=== PATIENT | male | born 1945 ===

== ENCOUNTER 2016-05-15 08:16 | Inpatient (IN) | payer OTHER ==
[2016-04-25 15:15] VITALS: BMI 34.0
--- NOTE | 2016-04-25 15:48 | PAT Medication Instructions ---
Service Date Apr 25, 2016. Current Home Medication List Amlodipine (Norvasc), 10 MG PO QAM Hydrochlorothiazide (Hctz), 25 MG PO QAM Metoprolol Tartrate (Lopressor) (Lopressor), 50 MG PO BID Multivitamin (Multivitamin), 1 TAB PO QAM Naproxen (Aleve), 220 MG PO PRN [Klorcon], 20 MEQ PO QAM [Klorcon], 10 MEQ PO QPM [Vicodin], 1 TAB PO Q4H PRN for mortuary technician Instructions For Your Scheduled Surgery - Check with surgeon for instructions: Naproxen (Aleve), 220 MG PO PRN - Hold the following medications the morning of surgery: Hydrochlorothiazide (Hctz), 25 MG PO QAM [Klorcon], 20 MEQ PO QAM Multivitamin (Multivitamin), 1 TAB PO QAM - Take the following medications the morning of surgery with a sip of water: Amlodipine (Norvasc), 10 MG PO QAM Metoprolol Tartrate (Lopressor) (Lopressor), 50 MG PO BID [Vicodin], 1 TAB PO Q4H PRN for RN (okay to take up to 4 hours prior to surgery if needed) - Take the following medications as scheduled the night before surgery: Metoprolol Tartrate (Lopressor) (Lopressor), 50 MG PO BID [Vicodin], 1 TAB PO Q4H PRN for RN [Klorcon], 10 MEQ PO QPM If you have any questions please call us at [phone] (Daysi Gomez PA-C) or [phone] or [phone]
--- NOTE | 2016-04-25 16:13 | DIAGNOSTIC IMAGING REPORT ---
CHEST 2 VIEWS ROUTINE CLINICAL HISTORY: Preoperative chest COMPARISON STUDY: No previous studies for comparison. FINDINGS: The cardiac and mediastinal contours are normal. There is no evidence of focal pulmonary consolidation. There is no evidence of failure. No pleural effusions are visualized.[ There is minor linear basilar atelectasis/scarring. IMPRESSION: No active disease in the chest. Electronically signed by: Brenden Carrasco M.D. 04/25/2016 4:11 PM
[2016-04-25 16:17] LABS: BASO % 0.3 %; BASO ABS # 0.03 K/uL (0-0.2); COMPLETE YES; EOS % 1.3 %; HEMATOCRIT 43.1 % (42-52); IG% 0.1 %; LYMPH % 22.8 %; LYMPH ABS # 2.08 K/uL (1.2-3.4); MEAN CELL VOLUME 90.7 fL (80-100); MEAN CORPUSCULAR HEMOGLOBIN 31.2 pg (25-34); MEAN CORPUSCULAR HGB CONC 34.3 g/dl (32-36); MEAN PLATELET VOLUME 9.1 fL (7.4-10.4); MONO % 11.7 %; NEUT % 63.8 %; PLATELET COUNT 360 K/uL (130-400); RED BLOOD COUNT 4.75 M/uL (4.7-6.1); WHITE BLOOD COUNT 9.12 K/uL (4.8-10.8)
[2016-04-25 16:19] LABS: URINE APPEARANCE CLEAR (CLEAR); URINE BILIRUBIN NEG (NEG); URINE COLOR DK YELLOW; URINE NITRITE NEG (NEG); URINE SPECIFIC GRAVITY 1.022 (1.000-1.030); UROBILINOGEN NEG (NEG)
[2016-04-25 16:23] LABS: MANUAL MICROSCOPIC REQUIRED? NO; REVIEW REQ? NO
[2016-04-25 16:26] LABS: PARTIAL THROMBOPLASTIN RATIO 1.3; PROTHROMBIN TIME (PATIENT) 10.9 SECONDS (9.0-12.0)
[2016-04-25 16:43] LABS: BUN/CREATININE RATIO 19.6 (10-20); CALCIUM 9.9 mg/dl (8.5-10.1); CREATININE 0.91 mg/dl (0.60-1.40); POTASSIUM 4.4 mmol/L (3.5-5.1)
--- NOTE | 2016-05-03 18:32 | HISTORY & PHYSICAL EXAMINATION ---
DATE OF ADMISSION: 05/15/2016 CHIEF COMPLAINT: Left hip pain. HISTORY OF PRESENT ILLNESS: This 70-year-old white male presents to the office with his with complaints of left hip pain. He has had left hip pain for several years. It has become worse over the last 3 months. Pain is affecting his ADLs. It is worse with ambulation. No numbness or tingling. He is ambulatory with a cane. Preoperative x-rays have been obtained. He elects to proceed with left total hip arthroplasty in hopes of alleviating his discomfort. PAST MEDICAL HISTORY: Hypertension, kidney stones, and osteoarthritis. PREVIOUS SURGERIES: Bilateral knee replacements. ALLERGIES: KNOWN ALLERGY TO NAPROSYN WHICH CAUSES A RASH. CURRENT MEDICATIONS: HCTZ 25 mg daily, potassium 30 mEq daily, Lopressor 50 mg p.o. b.i.d., multivitamin daily, Norvasc 10 mg daily. SOCIAL HISTORY: The patient is . Retired. Works on a farm. No tobacco use, no ETOH use. FAMILY HISTORY: Noncontributory. REVIEW OF SYSTEMS: Significant for above stated conditions, otherwise unremarkable. PHYSICAL EXAMINATION: GENERAL: Well-developed, well-nourished elderly white male in no acute distress. Sitting in a chair. Alert and oriented. SKIN: Warm and dry with good turgor. No rashes or lesions. No ecchymosis or edema. HEENT: Normocephalic, atraumatic. Eyes PERRLA, EOMI. Nares patent bilaterally without turbinate enlargement. Oropharynx without erythema or exudate. No lesions noted. Uvula midline. Oral mucosa moist. Fair dentition; fillings are noted. HEART: RRR. No MGR. LUNGS: Clear to auscultation bilaterally. No crackles, rhonchi or wheezing. Good air movement. ABDOMEN: Mildly obese. Bowel sounds present x4, soft, nontender. No organomegaly. No masses. MUSCULOSKELETAL: Left hip has no obvious asymmetry or deformity. He has discomfort with palpation over the anterior flexion crease. External rotation of around 30 degrees, internal rotation just beyond neutral. Hip flexion to around 100 degrees. Ambulatory with an antalgic gait using his cane. No pain with palpation over the greater trochanter or buttock. NEUROLOGIC: Gross sensation is intact across both lower extremities by soft touch. Cranial nerves II-XII are intact. DATA: Radiographic images previously obtained were reviewed. The patient has end-stage DJD of the left hip with a large Cam lesion. Joint space narrowing, periarticular osteophytes, and subchondral sclerosis were also present. There is a subchondral cyst on the femur. IMPRESSION: Left hip end-stage degenerative joint disease. PLAN: Informed written consent was obtained for left total hip arthroplasty. Postoperative prescriptions for Percocet and Coumadin will be provided at discharge from the hospital. He will think about outpatient PT versus home health. He did request pain medication until the time of surgery. He will obtain medical clearance from his PCP, Dr. Al. Preoperative lab work, EKG, and chest x-ray have been ordered.
[2016-05-15] VITALS (9 sets, daily range): BP systolic 103–134; BP diastolic 60–78; PULSE 61–91; TEMP 36.5–37.1; O2SAT 93–95; Ht 175.3 cm; Wt 105.9 kg
[~2016-05-15] VITALS: Ht 175.3 cm; Wt 105.9 kg
[~2016-05-15 08:16] MED LIST: AMLO-114 PO; BUPIVACAINE 0.5 % 5 MG/1 ML PF 10ML VIAL ONE; CEFAZOLIN 2000 MG/60 ML D5W 60 ML IV SCH; HYDR25TA4 PO; KLORCON PO; LACTATED RINGER'S 1000ML IV SCH; LACTATED RINGER'S 500 ML IV SCH; METO50TA16 PO; MULT-506 PO; NAPR1TAB9 PO; ORTHO JOINT ANESTHETIC ONE; ROPIVACAINE 5MG/ML 30 ML 150 MG, BUPIVACAINE/EPINEPHR 0.5% MPF 30 ML, DEXAMETHASONE INJ... INFIL SCH; TRANEXAMIC ACID INJ 1,000 MG in SODIUM CHLORIDE 0.9% 100ML 100 ML IV SCH; VICODIN PO
--- NOTE | 2016-05-15 08:27 | History & Physical Bridge Note ---
H&P Re-Evaluation Bridge Note: I have examined the patient, reviewed the History & Physical and in the interval since the performance of the History & Physical I have noted the following changes of clinical significance: No changes noted
[2016-05-15] MEDS ORDERED: klor con PO (08:46)
[2016-05-15] MEDS ORDERED: ROCURONIUM BROMIDE 10 MG/ML 5 ML VIAL ONE (10:14)
[2016-05-15] MEDS ORDERED: PROPOFOL IV EMULSION 10 MG/ML 20 ML VIAL IV ONE (10:14)
[2016-05-15] MEDS ORDERED: LIDOCAINE HCL 2% 2 ML VIAL (20MG/ML) ONE (10:14)
[2016-05-15] MEDS ORDERED: MIDAZOLAM HCL 1 MG/ML 2ML VIAL ONE (10:15)
[2016-05-15] MEDS ORDERED: FENTANYL CITRATE INJ 50 MCG/1 ML 2 ML VIAL ONE ×2 (10:15→11:35)
--- NOTE | 2016-05-15 10:17 | Anesthesiology Progress Note ---
Anesthesia Post Op Note Date & Time May 15, 2016 at 12:30 The patient had some coughing, non-productive, in the PACU. He was given a duoneb treatment and discharged on 02 3L NC. Vital Signs Pain Intensity: 0 Vital Signs Past 12 Hours Date Time Temp Pulse Resp B/P Pulse Ox O2 Delivery O2 Flow Rate FiO2 05/15/16 08:49 37.1 74 18 132/77 93 Room Air Notes Mental Status: alert / awake / arousable, participated in evaluation Pt Amnestic to Procedure: Yes Nausea / Vomiting: adequately controlled Pain: adequately controlled Airway Patency, RR, SpO2: stable & adequate BP & HR: stable & adequate Hydration State: stable & adequate Anesthetic Complications: no major complications apparent
[2016-05-15] MEDS ORDERED: ONDANSETRON INJ 2 MG/ML 2 ML VIAL IV PRN ×2 (10:30→12:45)
[2016-05-15] MEDS ORDERED: PHENYLEPHRINE 100MCG/ML 5ML SYR IV PRN (10:30)
[2016-05-15] MEDS ORDERED: ATROPINE SULFATE 0.1 MG/ML 5ML SYR IV PRN (10:30)
[2016-05-15] MEDS ORDERED: EpHEDrine SULFATE INJ 50 MG/ML AMP IV PRN (10:30)
[2016-05-15] MEDS ORDERED: SCOPOLAMINE 1.5 MG TDSY TD ONE (11:09)
[2016-05-15] MEDS ORDERED: DEXAMETHASONE SOD INJ 4 MG/ML VIAL ONE (11:52)
[2016-05-15] MEDS ORDERED: ONDANSETRON INJ 2 MG/ML 2 ML VIAL ONE (11:52)
[2016-05-15] MEDS ORDERED: HYDROmorphone INJ 2 MG/ML SYR/VIAL ONE (11:53)
[2016-05-15] MEDS ORDERED: POVIDONE-IODINE OP SOLN 30 ML BTL TOP ONE (12:35)
--- NOTE | 2016-05-15 12:41 | [facility] Post Operative Brief Note ---
Immediate Operative Summary Operative Date May 15, 2016. Pre-Operative Diagnosis Left Hip End-Stage Degenerative Joint Disease Post-Operative Diagnosis Left Hip End-Stage Degenerative Joint Disease Procedure(s) Performed Left Total Hip Arthroplasty--Uncemented Surgeon Dr. Gregg Die Drawing Checker Surgeon(s) Dr. Maninder Mendes/COREY Mars Estimated Blood Loss 200 ml Findings severe deformity and contracture Fluids (cc crystalloids) 1800cc Specimens A. Left Femoral Head Drains none Anesthesia GET Complication(s) None Disposition Recovery Room / PACU
[2016-05-15] MEDS ORDERED: BISACODYL 10 MG SUPP PR PRN (12:45)
[2016-05-15] MEDS ORDERED: MAGNESIUM HYDROXIDE SUSP 30 ML UDC PO PRN (12:45)
[2016-05-15] MEDS ORDERED: TAMSULOSIN HCL 0.4 MG CAP PO PRN (12:45)
[2016-05-15] MEDS ORDERED: METOCLOPRAMIDE HCL INJ 5 MG/ML 2 ML VIAL IV PRN (12:45)
[2016-05-15] MEDS ORDERED: KETOROLAC TROMETHAMINE 15 MG/ML VIAL IV PRN (12:45)
[2016-05-15] MEDS ORDERED: DiphenhydrAMINE HCL 50 MG/ML VIAL IV PRN (12:45)
[2016-05-15] MEDS ORDERED: ALUMINUM/MAGNESIUM/SIMETH (MAALOX MAX) 30 ML UDC PO PRN (12:45)
--- NOTE | 2016-05-15 12:58 | [facility] Post Operative Brief Note ---
Immediate Operative Summary Operative Date May 15, 2016. Pre-Operative Diagnosis Left Hip End-Stage Degenerative Joint Disease Post-Operative Diagnosis Left Hip End-Stage Degenerative Joint Disease Procedure(s) Performed Left Total Hip Arthroplasty--Uncemented Surgeon Dr. Gregg Coke Worker Surgeon(s) Dr. Maninder Mendes/COREY Mars Estimated Blood Loss 200 ml Findings severe left hip DJD Fluids (cc crystalloids) 1800cc Specimens A. Left Femoral Head Complication(s) None Disposition Recovery Room / PACU
--- NOTE | 2016-05-15 13:01 | OPERATIVE REPORT ---
DATE OF OPERATION: 05/15/2016 PREOPERATIVE DIAGNOSIS: Severe osteoarthritis left hip. POSTOPERATIVE DIAGNOSIS: Same. PROCEDURE: Noncemented left total hip replacement. SURGEON: Dr. Gregg. ROUNDHOUSE FIRER/FIREMAN: Dr. Toussaint. SECOND ROUNDHOUSE FIRER/FIREMAN: Mateus Chavez PA-C. PERIOPERATIVE SITUATION: Medically cleared male with intractable hip pain has failed conservative management and wishes to proceed with surgical treatment. Options were discussed with him as well as all of the risks and complications. Please see consent. OPERATION AND FINDINGS: OPERATION: The patient appropriately identified, site verified, consent verified, 2 grams of Ancef confirmed as being given. The left lower extremity was prepped and draped in the usual routine fashion with the patient in the right lateral decubitus position. A posterior approach to the hip was made. Sharp dissection carried through the skin and blunt dissection down to the fascia. This was then incised with care taken to protect the sciatic nerve. The Charnley retractor was placed. The short external rotators were released and the capsule excised due to all the contractures. The osteophytes were resected along the margin of the acetabulum and the hip dislocated. There was severe deformity of the femoral head and the acetabulum. The femoral head was resected. Anterior capsule was released. Acetabular exposure was then obtained and the remaining labrum was excised and serial reaming carried up to a 54 and 54 cup impacted into appropriate anteversion and inclination. A 6.5 x 25 screw with then placed with excellent purchase. A trial liner was then seated. The femur was then flexed, internally rotated and delivered in the wound, retractors placed. Using a wood box maker, lateralizing rasp, canal finder and serial broaching a size 5 high offset trial was then placed and the reduction carried out with a +5 head and leg lengths were within millimeters of equality and there was superior stability. The hip was then dislocated and all remaining trial implants were removed. The wound was irrigated with Betadine multiple times, Pulsavac, hole eliminator seated, permanent liner seated, permanent stem and head seated, the hip then reduced. It was very stable and leg lengths good. The wound was then irrigated one final time with Betadine and Pulsavac and then the fascia closed with #2 Vicryl then the Orthomix injected and then the wound closed with #2 Vicryl, 2-0 Vicryl and stainless steel clips. Appropriate soft tissue dressing applied and the patient transferred to the recovery room in satisfactory condition having tolerated the procedure well. Estimated blood loss 200 mL. Crystalloid 1800 mL. DVT prophylaxis will be with Coumadin. SUMMARY OF IMPLANTS: Size 54 shell acetabular cup with Gription hole eliminator, 6.5 x 25 screw, 36 x 54 neutral liner, 5 high offset femur stem and 36+5 head. I attest to the content of the Intraoperative Record and any orders documented therein. Any exceptio ns are noted below.
[2016-05-15] MEDS: HYDROmorphone INJ 2 MG/ML SYR/VIAL IV PRN ×6 (13:13→13:38)
--- NOTE | 2016-05-15 13:31 | DIAGNOSTIC IMAGING REPORT ---
AP PELVIS AND LEFT HIP CLINICAL HISTORY: Left hip arthritis COMPARISON STUDY: Outside study dated April 08, 2016 FINDINGS: There are postsurgical changes of a total left hip arthroplasty. The acetabular and femoral components appear well seated. There are no acute fractures. There is no dislocation. There is air within the soft tissues consistent with recent surgery. Overlying skin rogelio are evident. IMPRESSION: Postsurgical changes of a total left hip arthroplasty Electronically signed by: Brenden Carrasco M.D. 05/15/2016 1:30 PM Dictated Date/Time: 05/15/2016 1:29 PM
--- NOTE | 2016-05-15 13:39 | PROGRESS NOTE ---
DATE: 05/15/2016 DATE: 05/15/2016. SUBJECTIVE: Postop check. He is doing well in recovery room, has no major issues. His vital signs are stable. He is afebrile. He denies chest pain, shortness of breath, fever or chills. Neurovascular check reveals intact sciatic nerve and femoral nerve. Postop x-rays look excellent. ASSESSMENT: Doing well. Continue care pathway. Transfer to the floor when vitals are appropriate.
[2016-05-15] MEDS ORDERED: MoRPHine SULFATE 4 MG/ML 1 ML CARP\\VIAL IV PRN (13:45)
[2016-05-15] MEDS ORDERED: KLOR CON PO SCH (14:00)
[2016-05-15] MEDS: MoRPHine SULFATE 2 MG/ML CARP IV PRN ×2 (15:45→22:31)
[2016-05-15] MEDS ORDERED: WARFARIN SOD 5 MG TAB PO ONE (17:00)
[2016-05-15] MEDS: D5W AND 1/2NSS + 20MEQ KCL 1,000 ML IV SCH (17:14)
[2016-05-15] MEDS: FERROUS GLUCONATE 324 MG TAB PO SCH (18:06)
[2016-05-15] MEDS ORDERED: TRANEXAMIC ACID INJ 1,000 MG in SODIUM CHLORIDE 0.9% 100ML 100 ML IV SCH (18:30)
[2016-05-15] MEDS: ACETAMINOPHEN IV 1,000 MG in EMPTY BAG 0 ML IV SCH (18:52)
[2016-05-15] MEDS: CEFAZOLIN IV 2,000 MG in DEXTROSE 5% 50ML 50 ML IV SCH (20:53)
[2016-05-15] MEDS: DOCUSATE SODIUM 100 MG CAP PO SCH (20:53)
[2016-05-15] MEDS: METOPROLOL TARTRATE 50 MG TAB PO SCH (20:53)
[2016-05-15] MEDS ORDERED: SENNA 8.6 MG TAB PO SCH (21:00)
--- NOTE | 2016-05-15 22:17 | INTERNAL MEDICINE CONSULTATION ---
DATE OF CONSULTATION: 05/15/2016 ATTENDING PHYSICIAN: Janak Gregg MD CONSULTING PHYSICIAN: Dr. Bradley Montero REASON FOR CONSULTATION: Perioperative medical management. HISTORY OF PRESENT ILLNESS: Mr. Abel is a 70-year-old gentleman with a history of hypertension, osteoarthritis and chronic back pain. He has had previous bilateral knee replacements and is currently admitted after undergoing a left total hip arthroplasty. He reports no real complaints postoperatively. Denies any fever, chills, malaise. Denies any chest pain, palpitation, shortness of breath, cough. He denies any abdominal pain, nausea, vomiting or diarrhea. He denies any dysuria, hematuria or urinary frequency. He denies any other swollen or painful joints. He does complain of some back pain which he says is chronic as well as some expected left hip pain which he says is well-controlled with his current pain medication regimen. He denies any numbness, tingling or focal weakness and he denies any lower extremity edema. He did have some preoperative workup which included a CBC on 04/25/2016 that showed a white blood cell count of 9100 with a completely normal differential. Hemoglobin was 14.8, hematocrit 43.1% and platelets 360,000. Chemistries at that time showed a sodium of 139, potassium 4.4, chloride 98, bicarbonate was 33, BUN 18 and creatinine 0.9. Glucose was 100, calcium was 9.9. PT was 10.9 for an INR of 1.0. PTT was 32.9. A urinalysis at that time showed clear, dark yellow urine that was trace positive for ketones and had a specific gravity of 1.022, but was otherwise completely unremarkable. A preoperative chest x-ray was read by radiology as showing no acute cardiopulmonary process. A note was made of some minor linear basal atelectasis or scarring. At this point, the patient is resting comfortably on the orthopedic floor and has no complaints at this time. ALLERGIES: NAPROXEN TO WHICH HE REPORTS A RASH. HOME MEDICATIONS: Include: 1. Amlodipine 10 mg p.o. daily. 2. Hydrochlorothiazide 25 mg p.o. daily. 3. Lopressor 50 mg p.o. twice daily. 4. Potassium chloride. 5. Multivitamins. 6. Vicodin p.r.n. for pain. PAST MEDICAL HISTORY: Includes: 1. Hypertension. 2. Osteoarthritis. 3. Previous kidney stones. 4. Status post right and left knee replacements. 5. 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 6. The patient also reports having an echocardiogram remotely after which he was told he had LVH. FAMILY HISTORY: Positive for esophageal cancer in his father, breast cancer and coronary artery disease in his mother. He also has a brother with coronary artery disease. SOCIAL HISTORY: The patient lives at home with his . He is generally independent. He is a lifelong nonsmoker. He does not abuse alcohol or illicit drugs. 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 REVIEW OF SYSTEMS: A 10-system review was conducted and was found to be completely negative except as otherwise indicated above in the history of present illness. PHYSICAL EXAMINATION: VITAL SIGNS: Currently shows temperature is 36.5, pulse 80, respiratory rate is 19, blood pressure is 114/69 and oxygen saturation is 93% on 2 liters via nasal cannula. GENERAL: The patient is awake, alert and oriented. He is in no acute distress. HEENT: The sclerae are nonicteric. The mucous membranes are moist. NECK: The trachea is midline. There is no JVD. RESPIRATORY: The lungs are grossly clear, though very mildly diminished in the bases. He is not in any respiratory distress. CARDIOVASCULAR: S1 and S2 are heard with regular rate and rhythm. There is no murmur, rub or gallop. ABDOMEN: Soft, nontender and nondistended. Bowel sounds are present. EXTREMITIES: Warm, well-perfused and without edema. SKIN: Warm and dry. There is no cyanosis or rash. MUSCULOSKELETAL: There is no chest wall tenderness. The left hip was not examined. It is surgically dressed. There is no other evidence of acute arthritis in any of the joints of either hand or the bilateral feet. No other evidence of joint effusion. NEUROLOGIC: The patient is awake and alert. There are no obvious focal deficits. Gait was not assessed. PSYCHIATRIC: The patient is calm and cooperative. He exhibits a normal mood and affect. DIAGNOSTIC INVESTIGATIONS: Labs and imaging from his preoperative workup were reviewed as outlined above in the history of present illness. ASSESSMENT AND PLAN: 1. Status post left hip total arthroplasty. Care per orthopedics. Currently, his pain is well-controlled. We will continue to monitor his hemoglobin and hematocrit as well as his renal function postoperatively. 2. Hypertension. He is optimally controlled on his current regimen of amlodipine, hydrochlorothiazide and metoprolol. Would continue. 3. Deep venous thrombosis prophylaxis. He is receiving warfarin per orthopedics. We will follow PT/INR. 4. Gastrointestinal prophylaxis with Protonix. Thank you for allowing us to participate in the care of your patient. We will continue to follow him along with you. Total time spent preparing this consultation was 35 minutes.
[2016-05-16] MEDS: ACETAMINOPHEN IV 1,000 MG in EMPTY BAG 0 ML IV SCH (00:10)
[2016-05-16 02:40] VITALS: BP 115/66; PULSE 58; TEMP 36.6; O2SAT 94
[2016-05-16] MEDS: D5W AND 1/2NSS + 20MEQ KCL 1,000 ML IV SCH (04:09)
[2016-05-16] MEDS: CEFAZOLIN IV 2,000 MG in DEXTROSE 5% 50ML 50 ML IV SCH (04:09)
[2016-05-16 06:18] LABS: BASO % 0.1 %; BASO ABS # 0.01 K/uL (0-0.2); COMPLETE YES; HEMATOCRIT 36.5 % (42-52); IG% 0.3 %; LYMPH % 7.6 %; LYMPH ABS # 1.14 K/uL (1.2-3.4); MEAN CELL VOLUME 90.1 fL (80-100); MEAN CORPUSCULAR HEMOGLOBIN 30.9 pg (25-34); MEAN CORPUSCULAR HGB CONC 34.2 g/dl (32-36); MEAN PLATELET VOLUME 8.7 fL (7.4-10.4); PLATELET COUNT 313 K/uL (130-400); RED BLOOD COUNT 4.05 M/uL (4.7-6.1); WHITE BLOOD COUNT 15.02 K/uL (4.8-10.8)
[2016-05-16 06:40] LABS: INR 1.1 (0.9-1.1); PROTHROMBIN TIME (PATIENT) 11.7 SECONDS (9.0-12.0)
[2016-05-16 06:51] LABS: BUN/CREATININE RATIO 17.7 (10-20); CALCIUM 9.3 mg/dl (8.5-10.1); CREATININE 0.95 mg/dl (0.60-1.40); POTASSIUM 4.2 mmol/L (3.5-5.1)
--- NOTE | 2016-05-16 06:52 | PROGRESS NOTE ---
DATE: 05/16/2016 CHIEF COMPLAINT: Postop check status post left total hip replacement. HISTORY OF PRESENT ILLNESS: The patient is doing well. His main issue is that he feels like he has not got enough sleep and he was bothered all night. He notes his pain is well managed and he has no chest pain, shortness of breath, fever or chills. PHYSICAL EXAMINATION: Vital signs are stable. He is afebrile. Neurovascular check femoral sciatic nerve is good. LABORATORY WORK: His hematocrit is excellent at 36. His PT is pending. ASSESSMENT AND PLAN: Overall, doing well status post left total hip replacement. Plan is to discharge today if he passes physical therapy, occupational therapy. He will be discharged on Coumadin 4 mg daily. Check INR on Friday.
--- NOTE | 2016-05-16 06:55 | DISCHARGE SUMMARY ---
CHIEF COMPLAINT: Left hip pain. HISTORY OF PRESENT ILLNESS: A 70-year-old male who has severe left hip disease wants to proceed with hip replacement. His hospital course has been uneventful. He has tolerated his hip replacement well. His hematocrit is stable. He desires to go home based on sleep needs. He needs to pass PT, OT if he does go home today. PAST MEDICAL HISTORY: Remarkable for hypertension, kidney stones, osteoarthritis. PAST SURGICAL HISTORY: Include bilateral knee replacements. ALLERGIES: ALLERGY TO NAPROSYN, WHICH CAUSES RASH. PREADMISSION MEDICATIONS: Include hydrochlorothiazide, potassium, Lopressor, multivitamin, Norvasc. He will keep all of those and add Coumadin to keep INR 1.8-2.2 on p.r.n. Percocet. SOCIAL HISTORY: Reveals he is . 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 No tobacco or alcohol use. FAMILY HISTORY: Noncontributory. REVIEW OF SYSTEMS: As noted above. ASSESSMENT: Doing well status post left total hip replacement. We will discharge today if he passes physical therapy, occupational therapy. Coumadin 4 mg daily.
[2016-05-16] MEDS ORDERED: DEXAMETHASONE INJ 10 MG in SYRINGE 0 ML IV SCH (07:30)
[2016-05-16 07:52] VITALS: BP 114/68; PULSE 76; TEMP 36.7; O2SAT 95
[2016-05-16] MEDS ORDERED: NURSING VERBAL MED ORDER ONE ×2 (08:00→08:45)
[2016-05-16 08:02] VITALS: O2SAT 95
[2016-05-16] MEDS: FERROUS GLUCONATE 324 MG TAB PO SCH ×2 (08:36→12:32)
[2016-05-16] MEDS: DOCUSATE SODIUM 100 MG CAP PO SCH (08:36)
[2016-05-16] MEDS: METOPROLOL TARTRATE 50 MG TAB PO SCH (08:37)
--- NOTE | 2016-05-16 08:48 | Orthopedic Progress Note ---
Orthopedic Progress Note Date of Service May 16, 2016. Subjective Post OP Day: 1 Reports: feeling well, pain controlled w PO medications, Denies: SOB, calf pain , chest pain, complaints, light headedness, nausea / vomiting, using MACHINE SETTER AUTOMATIC Objective calves soft nontender, N/V intact, hip located, capillary refill less than 2 sec., dressing C/D/I, incision C/D/I, A&O x3, toes mobile, CMS intact Date Time Temp Pulse Resp B/P Pulse Ox O2 Delivery O2 Flow Rate FiO2 05/16/16 08:02 95 Room Air 05/16/16 07:52 36.7 76 18 114/68 95 Room Air 05/16/16 02:40 36.6 58 16 115/66 94 Room Air 05/15/16 23:30 Room Air 05/15/16 23:00 36.7 61 16 103/60 94 Room Air 05/15/16 20:50 85 114/69 05/15/16 19:16 36.7 81 18 109/68 94 Nasal Cannula 2.0 05/15/16 17:50 37.0 91 18 111/69 94 Nasal Cannula 2.0 05/15/16 16:50 36.7 88 18 109/71 95 Nasal Cannula 2.0 05/15/16 15:58 36.5 80 19 114/69 93 Nasal Cannula 2.0 05/15/16 15:28 36.6 82 19 122/74 95 Nasal Cannula 2.0 05/15/16 15:00 Nasal Cannula 2.0 05/15/16 15:00 Nasal Cannula 2.0 05/15/16 14:50 36.7 76 16 134/78 93 Nasal Cannula 2.0 05/15/16 14:39 70 10 05/15/16 14:39 70 10 93 05/15/16 14:38 135/72 05/15/16 14:34 88 22 91 05/15/16 14:34 83 22 05/15/16 14:33 145/73 05/15/16 14:29 76 13 05/15/16 14:29 78 13 94 05/15/16 14:28 139/75 05/15/16 14:24 72 11 05/15/16 14:24 71 11 92 05/15/16 14:23 147/74 05/15/16 14:21 67 10 1/18/17 14:21 65 10 94 17 14:18 156/88 17 14:16 89 23 97 17 14:16 89 23 17 14:14 134/80 17 14:11 64 14 17 14:11 64 14 97 17 14:10 67 10 97 17 14:10 68 10 05/15/16 14:08 157/86 05/15/16 14:05 83 22 17 14:05 84 22 97 05/15/16 14:03 135/88 05/15/16 14:00 86 18 96 05/15/16 14:00 87 18 05/15/16 13:58 138/84 05/15/16 13:55 83 10 97 17 13:55 82 10 17 13:53 124/91 17 13:50 82 14 05/15/16 13:50 82 14 96 05/15/16 13:49 70 17 96 17 13:49 72 17 05/15/16 13:46 36.8 83 18 143/77 97 Nasal Cannula 3 05/15/16 13:44 71 22 94 17 13:44 73 22 17 13:43 137/79 17 13:42 75 21 17 13:42 74 21 127/73 95 18/17 13:38 152/81 17 13:37 71 13 96 17 13:37 71 13 17 13:33 151/89 1817 13:32 76 15 98 17 13:32 76 15 17 13:28 146/83 17 13:27 83 16 17 13:27 82 16 99 05/15/17 13:24 154/92 17 13:22 74 10 18/17 13:22 72 10 100 05/15/17 13:20 119/67 18/17 13:17 71 16 99 05/15/17 13:17 71 16 17 13:13 149/89 17 13:12 65 17 05/15/16 13:12 65 17 98 05/15/16 13:09 168/93 05/15/16 13:07 74 16 05/15/16 13:07 83 16 99 05/15/16 13:04 150/85 05/15/16 13:02 79 16 05/15/16 13:02 80 16 96 05/15/16 12:58 164/93 05/15/16 12:57 74 18 99 05/15/16 12:57 74 18 05/15/16 12:54 158/90 05/15/16 12:52 37.1 71 16 160/85 100 Mask 10 05/15/16 12:52 71 14 05/15/16 12:52 72 14 100 05/15/16 08:49 37.1 74 18 132/77 93 Room Air Laboratory Results 24 Hours: Test 05/16/16 05:57 White Blood Count 15.02 K/uL Red Blood Count 4.05 M/uL Hemoglobin 12.5 g/dL Hematocrit 36.5 % Mean Corpuscular Volume 90.1 fL Mean Corpuscular Hemoglobin 30.9 pg Mean Corpuscular Hemoglobin Concent 34.2 g/dl Platelet Count 313 K/uL Mean Platelet Volume 8.7 fL Neutrophils (%) (Auto) 86.0 % Lymphocytes (%) (Auto) 7.6 % Monocytes (%) (Auto) 6.0 % Eosinophils (%) (Auto) 0.0 % Basophils (%) (Auto) 0.1 % Neutrophils # (Auto) 12.93 K/uL Lymphocytes # (Auto) 1.14 K/uL Monocytes # (Auto) 0.90 K/uL Eosinophils # (Auto) 0.00 K/uL Basophils # (Auto) 0.01 K/uL Prothromb Time International Ratio 1.1 Prothrombin Time 11.7 SECONDS Assessment & Plan Assessment: Day 1 s/p Left Total Hip Arthroplasty Plan: Cont total hip precautions. Ice are with EZ wrap as instructed. Cont PT/OT Cont PO pain meds PRN Possible discharge later today DVT prophylaxis with Coumadin, LUKASZ stocking and SCD's Biweekly INR until reaching therapeutic range of 1.8-2.2 2 wks of home health care then outpatient PT/OT for 4 additional weeks. Follow up with Dr. Gregg in 2 wks. Discharge Planning Discharge Planning: home with home health Pain Management: Percocet DVT Prophylaxis: TEDs, SCDs, Coumadin Therapy: Physical Therapy, Occupational Therapy
[2016-05-16] MEDS: OXYCODONE HCL IR 5 MG TAB (IMMEDIATE RELEASE) PO PRN ×2 (08:52→14:01)
[2016-05-16] MEDS ORDERED: PANTOprazole SOD 40 MG TAB PO SCH (09:00)
[2016-05-16] MEDS ORDERED: MULTIVITAMIN TAB PO SCH (09:00)
[2016-05-16] MEDS ORDERED: AMLODIPINE BESYLATE 5 MG TAB PO SCH (09:00)
[2016-05-16] MEDS ORDERED: ACETAMINOPHEN 500 MG TAB PO SCH (09:00)
[2016-05-16] MEDS ORDERED: HYDROCHLOROTHIAZIDE 25 MG TAB PO SCH (09:00)
[2016-05-16] MEDS ORDERED: WARFARIN SOD 5 MG TAB PO SCH (09:00)
[2016-05-16 09:16] VITALS: BP 135/69; PULSE 84; TEMP 36.3; O2SAT 96
[2016-05-16] MEDS ORDERED: OXYC-57 PO (09:39)
[2016-05-16] MEDS ORDERED: WARF2TAB PO (09:39)
--- NOTE | 2016-05-16 09:41 | Discharge Instructions ---
Discharge Instructions Admission Reason for Admission: Left Hip Osteoarthritis Discharge Discharge Diagnosis / Problem: s/p Left total hip arthroplasty Discharge Goals Goal(s): Decrease discomfort, Improve function, Increase independence Activity Recommendations Activity Limitations: as noted below Lifting Limitations: none Exercise/Sports Limitations: none May Resume Sexual Activity: after follow-up appointment Shower/Bathe: keep incision dry Driving or Machine Use: once cleared by Dr. Gregg's office Weightbearing Status: Left weightbearing (as tolerated) . Instructions / Follow-Up Instructions / Follow-Up New Medicine: * You will likely be taking one or more of these medicines: 1. Percocet - Take, as directed, when you need it, every four to six hours to control your pain. 2. Iron Sulfate - Take three times each day for the month after surgery to help you replace the blood lost during surgery. 3. Coumadin - Thins your blood to lessen the chance of forming a blood clot. The dose of this is different for each person and is based on your blood tests that are done twice a week. * The most common side effects of pain medicine and iron are nausea and constipation. If nausea or constipation is too much of a problem or if you have any questions about your new medicines or doses, call [facility] at . We will try to help you manage these issues. VERY IMPORTANT TO READ AND REVIEW" Blood Clots and Blood Thinning Medicine: * You are given Coumadin during the immediate post-operative period to lessen the risk of blood clots forming in your legs and/or lungs. Coumadin is usually given for six weeks after surgery. * The prescription is for 2 mg tablets. At discharge, you should understand your dose and take it all at the same time every day, preferably after dinner. * You need to get your blood checked 1 - 2 times per week for six weeks, or as directed. * If your dose needs to change, we will call you. Do not take your medication on the day of the blood test until we call you. * If you don't hear from us after your blood draws, keep taking the same dose. Pain: * The immediate post-operative period after hip replacement surgery is often quite painful. * You are given a prescription for pain medicine. You should take it, as directed, when you need it, especially before physical therapy and before going to bed. Pain that interferes with sleep is very common and can last several months. * You will likely need pain medicine for the first two to four weeks. It will not stop all of the pain. The pain will lessen and as you feel better, you may change to milder pain medicine such as Tylenol. * The most common side effects of pain medicine are nausea and constipation, so don't take more than you need. Physical Therapy: * Follow the "Hip Precautions Instructions." * In some cases, the perinatal social worker at the hospital will arrange to have a therapist come to your house for the first couple of weeks to help you learn these skills. * You need to practice on your own or with the help of a family member as needed. * When you learn these skills, most of the therapy can be done on your own. Home Exercise: * You were shown a series of exercises in the hospital. Do these exercises three to four times each day including the exercises you were shown in physical therapy. Walking: * Get up and walk several times each day. For the first four weeks, try not to stand or walk for more than one hour at a time. If you do stand or walk for more than one hour, you will not hurt anything, but your leg will likely swell. * As you feel comfortable, you may change from the walker or crutches to a cane and then to independent walking. SELF CARE INSTRUCTIONS AFTER TOTAL HIP REPLACEMENT Until the incision and soft tissues around your hip have healed, there is a possibility that the hip prosthesis could dislocate. A. Observe the following precautions to prevent dislocation: 1. Don't bend your hip greater than 90 degrees. 2. Avoid crossing your legs or ankles while standing or lying. 3. Sit with your feet placed 6 inches apart. 4. When sitting, keep your knees below your hips. Sit on a firm surface, avoid deep, soft chairs and couches. Use an elevated toilet seat in the bathroom. 5. Don't bend over at the waist. Use a long handled shoehorn and a sock aid to help you put on your shoes and socks. A immigration judge can help you cook pickled meat objects that are too high or too low to reach. 6. Keep car riding to a minimum for at least one month after surgery. B. Your balance may be shaky for a while. Use crutches or a walker until directed by your doctor. C. Use hand rails when walking on stairs. D. Wear low heeled shoes with non-slip soles. E. Be sure that your floors are free of things that could trip you - throw rugs , electrical cords, small objects. Avoid wet and waxed floors, especially with crutches and canes. F. Try to walk several times a day with rest periods between. G. Continue with all the exercises taught to you in the hospital. Again, make walking a part of your daily routine. VERY IMPORTANT TO READ AND REVIEW A. Take Coumadin, or Lovenox (blood thinning medications) as directed by your doctor. If you are on Coumadin, have a pro-time (blood test) drawn according to your doctor's instructions. This will tell the doctor how well the Coumadin is thinning your blood. B. There are a few signs you need to watch for after you are home. If you notice any of the followin. Increased severe hip pain. Some pain is expected especially when you exercise. 2. Increased swelling in your leg or knee; pain or swelling of the calf muscle in either lower leg. 3. Any fluid drainage from the incision. 4. Shortness of breath or chest pain. TEDs/Elastic Stockings: * The white elastic stockings help limit swelling and prevent blood clots from forming in your legs. The more you wear them, the more they work. * Wear them for six weeks. Prevention of Infection: * Take antibiotics one hour before any dental cleaning, dental work, urological procedure, gastrointestinal procedure or any invasive surgery in order to prevent your new joint from getting infected. * You may get the antibiotics from the doctor performing the procedure or we will call in a prescription to the pharmacy of your choice. Call the office for a prescription at least 2 days prior to your appointment. Things to Watch For: * Drainage from the incision site that occurs more than one week after your surgery. * Severely increased leg pain or swelling. * Increased redness at the incision site. * Fever above 101 degrees Fahrenheit. * Unusual chest pain or shortness of breath. * Unusual pain or burning with urination. Follow up with [facility] in 2 weeks for staple removal and follow up evaluation. If unaware of appointment date/time please call our office at [phone]. Current Hospital Diet Patient's current hospital diet: Regular Diet Discharge Diet Recommended Diet: Regular Diet Procedures Procedures Performed: Left Total Hip Arthroplasty--Uncemented Pending Studies Studies pending at discharge: no Medical Emergencies . Who to Call and When: Medical Emergencies: If at any time you feel your situation is an emergency, please call 911 immediately. . Non-Emergent Contact Non-Emergency issues call your: Primary Care Provider . "Provider Documentation" section prepared by Yogi Leblanc. VTE Core Measure Inpt VTE Proph given/why not?: Warfarin (Coumadin), Holden Luciano, SCD's [place] Drug Monitoring Program Search Results: no issues identified
[2016-05-16 11:41] VITALS: BP 120/71; PULSE 65; TEMP 36.5; O2SAT 96
[2016-05-16 12:41] VITALS: BP 120/71; PULSE 65; TEMP 36.5; O2SAT 96
--- NOTE | 2016-05-16 12:58 | Anesthesiology Progress Note ---
Anesthesia Post Op Note Date & Time May 16, 2016 at 12:58 Vital Signs Vital Signs Past 12 Hours Date Time Temp Pulse Resp B/P Pulse Ox O2 Delivery O2 Flow Rate FiO2 05/16/16 12:41 36.5 65 18 96 Room Air 05/16/16 11:41 36.5 65 18 120/71 96 Room Air 05/16/16 09:16 36.3 84 18 135/69 96 Room Air 05/16/16 08:02 95 Room Air 05/16/16 07:52 36.7 76 18 114/68 95 Room Air 05/16/16 07:27 Room Air 05/16/16 02:40 36.6 58 16 115/66 94 Room Air Notes Mental Status: alert / awake / arousable, participated in evaluation Pt Amnestic to Procedure: Yes Nausea / Vomiting: adequately controlled Pain: adequately controlled Airway Patency, RR, SpO2: stable & adequate BP & HR: stable & adequate Hydration State: stable & adequate Anesthetic Complications: no major complications apparent
== END 2016-05-16 16:09 | disposition home health service (06) | DRG 470 ==
LOC: CANRESERV → ENRESERVDT → ENRESERVTM → C.ACU 08:16 → C.3E 12:57
PROVIDERS: ADMIT Physical Medicine & Rehabilitation Sports Medicine; ATTEND Physical Medicine & Rehabilitation Sports Medicine
PROC: 0SRB0JA Replacement of Left Hip Joint with Synthetic Substitute, Uncemented, Open Approach (ICD-10-PCS; principal; 2016-05-15 10:30)
DX: M16.12 Unilateral primary osteoarthritis, left hip (principal); I10 Essential (primary) hypertension; G89.29 Other chronic pain; M54.9 Dorsalgia, unspecified; E66.9 Obesity, unspecified; G47.33 Obstructive sleep apnea (adult) (pediatric); N40.0 Benign prostatic hyperplasia without lower urinary tract symptoms; Z96.653 Presence of artificial knee joint, bilateral; Z79.1 Long term (current) use of non-steroidal anti-inflammatories (NSAID); Z99.89 Dependence on other enabling machines and devices; Z79.899 Other long term (current) drug therapy; Z68.34 Body mass index [BMI] 34.0-34.9, adult; Z79.891 Long term (current) use of opiate analgesic

== ENCOUNTER → 2016-07-01 | Outpatient (CLI) | payer OTHER ==
[~2016-07-01] MED LIST changes: -BUPIVACAINE 0.5 % 5 MG/1 ML PF 10ML VIAL ONE; -CEFAZOLIN 2000 MG/60 ML D5W 60 ML IV SCH; -KLORCON PO; -LACTATED RINGER'S 1000ML IV SCH; -LACTATED RINGER'S 500 ML IV SCH; -NAPR1TAB9 PO; -ORTHO JOINT ANESTHETIC ONE; +OXYC-57 PO; -ROPIVACAINE 5MG/ML 30 ML 150 MG, BUPIVACAINE/EPINEPHR 0.5% MPF 30 ML, DEXAMETHASONE INJ... INFIL SCH; -TRANEXAMIC ACID INJ 1,000 MG in SODIUM CHLORIDE 0.9% 100ML 100 ML IV SCH; -VICODIN PO; +WARF2TAB PO; +klor con PO
== END | disposition home or self-care (01) ==
LOC: C.RDSM 08:39
PROVIDERS: ATTEND Physical Medicine & Rehabilitation Sports Medicine
DX: M16.12 Unilateral primary osteoarthritis, left hip (principal); Z96.642 Presence of left artificial hip joint